=== PATIENT | female | born 1965 | race Caucasian/White ===

== ENCOUNTER → 2022-08-14 10:14 | Outpatient (BNVA) | payer OTHER, SELFPAY | PROVIDERS: Family Provider Registered Nurse; PCP Nurse Practitioner Family; Visit Provider Internal Medicine Rheumatology | DX: Z79.899 Other long term (current) drug therapy (principal); S89.91XA Unspecified injury of right lower leg, initial encounter; M19.042 Primary osteoarthritis, left hand; M17.11 Unilateral primary osteoarthritis, right knee | CPT/HCPCS: 36415; 73130; 73562; 80076; 82306; 82565; 85025; 85651; 86038; 86140; 86200; 86431 ==

== ENCOUNTER → 2023-06-03 13:53 | Outpatient (BNVA) | payer OTHER, SELFPAY | PROVIDERS: Family Provider Registered Nurse; PCP Nurse Practitioner Family; Visit Provider Internal Medicine Rheumatology | DX: Z79.899 Other long term (current) drug therapy (principal); M15.4 Erosive (osteo)arthritis | CPT/HCPCS: 36415; 80076; 82565; 85025; 86140 ==

== ENCOUNTER → 2023-10-07 13:31 | Outpatient (BNVA) | payer OTHER, SELFPAY | PROVIDERS: Family Provider Registered Nurse; PCP Nurse Practitioner Family; Visit Provider Internal Medicine Rheumatology | DX: Z79.899 Other long term (current) drug therapy (principal); M15.4 Erosive (osteo)arthritis; R52 Pain, unspecified | CPT/HCPCS: 36415; 80076; 82565; 85025; 86140 ==

== ENCOUNTER → 2024-04-26 14:31 | Outpatient (BNVA) | payer OTHER, SELFPAY | PROVIDERS: Family Provider Registered Nurse; PCP Nurse Practitioner Family; Visit Provider Internal Medicine Rheumatology | DX: Z79.899 Other long term (current) drug therapy (principal); M15.4 Erosive (osteo)arthritis; R52 Pain, unspecified | CPT/HCPCS: 36415; 80076; 82565; 85025; 85651; 86140 ==